=== PATIENT | female | born 1960 | race Asian ===

== ENCOUNTER 2016-11-07 06:25 | Day surgery (SDC) | payer BC ==
[~2016-11-07 06:25] MED LIST: Buffered Lidocaine 0.9% SYRIN* 5 ML/SYR SYRINGE INTRADERM ONE; Dexamethasone IV* 4 MG/ML 1 ML (4 MG) IV SLOW PU ONE; Famotidine IV* 10 MG/ML 2 ML (20 mg) IV ONE
[2016-11-07] MEDS ORDERED: Buffered Lidocaine 0.9% SYRIN* 5 ML/SYR SYRINGE ONE (06:47)
[2016-11-07] MEDS ORDERED: Famotidine IV* 10 MG/ML 2 ML (20 mg) ONE (06:47)
[2016-11-07] MEDS ORDERED: Dexamethasone IV* 4 MG/ML 1 ML (4 MG) ONE (06:47)
[2016-11-07] MEDS ORDERED: Propofol* 10 MG/ML 20 ML BTL IV PUSH ONE (07:15)
[2016-11-07] MEDS ORDERED: Lidocaine 2% PF * 5 ML VIAL ONE (07:15)
[2016-11-07] MEDS ORDERED: Succinylcholine* 20 MG/ML 10 ML VIAL ONE (07:15)
[2016-11-07] MEDS ORDERED: fentaNYL* 50 MCG/ML 2 ML VIAL (100 MCG VIAL) ONE ×2 (07:16→07:57)
[2016-11-07] MEDS ORDERED: Midazolam* 1 MG/ML 2 ML VIAL (2 MG) ONE (07:16)
[2016-11-07] MEDS ORDERED: oxyCODONE/Acetamin 5/325 MG* TAB PO PRN (07:31)
[2016-11-07] MEDS ORDERED: PROCHLORPERAZINE INJ 5 MG/ML 2 ML VIAL IV PRN (07:31)
[2016-11-07] MEDS ORDERED: fentaNYL* 50 MCG/ML 2 ML VIAL (100 MCG VIAL) IV PRN (07:31)
[2016-11-07] MEDS ORDERED: HYDROcodone/ACETAMIN 5-325 MG* 1 TAB PO PRN (07:31)
[2016-11-07] MEDS ORDERED: Ondansetron INJ* 2 MG/ML VIAL ONE (07:59)
[2016-11-07] MEDS ORDERED: HYDROcodone/ACET. 7.5/325 LIQ* 15 ML UDC ONE (08:59)
[2016-11-07] MEDS ORDERED: PROCHLORPERAZINE INJ 5 MG/ML 2 ML VIAL ONE (09:31)
--- NOTE | 2016-11-07 10:40 | OP ---
OPERATIVE REPORT: DATE OF OPERATION: 11/07/16 DATE OF : 62 SURGEON: Samuel Langley MD. PRE-OP DIAGNOSIS: Chronic tonsillitis. POST-OP DIAGNOSIS: Chronic tonsillitis. OPERATIVE PROCEDURE: Tonsillectomy. BRIEF HISTORY: This 56-year-old with symptoms of chronic recurring tonsillitis, frequent tonsilloli ths, elected for surgical therapy. DESCRIPTION OF PROCEDURE: The patient was taken to the operating room, general anesthetic was given , the patient was intubated. Tongue, mandible, and soft palate were retracted. Coblator was used t o remove the tonsils. Once hemostasis was obtained, the patient was awakened and sent to recovery r oom in stable condition. Instrument and sponge count correct. Blood loss minimal. [id number]/[facility] #: [id number]
[2016-11-07 11:28] VITALS: BP 105/72
== END 2016-11-07 11:25 | disposition home or self-care (01) ==
LOC: OR 06:25
PROVIDERS: ATTEND Otolaryngology
DX: J35.01 Chronic tonsillitis (principal); I10 Essential (primary) hypertension; E78.5 Hyperlipidemia, unspecified
CPT/HCPCS: 88304; J0330; J0780; J1100; J2250; J2405; J2704; J3010

== ENCOUNTER 2019-03-13 15:19 | Emergency (ER) | payer BC, OTHER ==
--- NOTE | 2019-03-13 15:48 | ED ---
Shortness of Breath - HPI Summary HPI Summary: The patient is a 58 y/o F presenting to [facility] accompanied by son with a chief complaint of worsening exertional SOB over the last few weeks with an episode of chest tightness today. She reports that she has been experiencing SOB that is only noticeably present with exertion, and today she had been exercising as usual and felt SOB as well as chest tightness. She denies any nausea or edema, but she did have some lightheadedness. She notes pain in left popliteal area causing decreased ROM of knee. She also has noticed elevated HR recently. Symptoms currently rated 0/10 in severity. No recent travel or surgeries. No history of blood clots in herself or in family. PMHx: HTN, HLD, tonsillectomy, Achilles tendon repair on right. FHx: stroke, congenital heart defect. Nonsmoker , rare EtOH, no substance use. Medications reviewed. Allergies noted. - History of Current Complaint Chief Complaint: EDShortnessOfBreath Time Seen by Provider: 03/13/19 15:38 Hx Obtained From: Patient Onset/Duration: Lasting Weeks, Still Present, Worse Since - today Current Severity: Mild Dyspnea At: Exertion Aggravating Factors: Other - exertion, exercise Alleviating Factors: Other - rest Associated Signs & Symptoms: Chest Pain Unrelated to Cough - tightness with exercise today, Dizzy - Allergy/Home Medications Allergies/Adverse Reactions: Allergies Allergy/AdvReac Type Severity Reaction Status Date / Time irbesartan Allergy Coughing Verified 03/13/19 15:53 lisinopril Allergy Coughing Verified 03/13/19 15:53 Home Medications: Home Medications Simvastatin (NF) [Zocor (NF)] 40 mg PO QPM 03/13/19 [History Confirmed 03/13/19] amLODIPine TAB* [Norvasc 5 mg TAB*] 10 mg PO DAILY 03/13/19 [History Confirmed 03/13/19] PMH/Surg Hx/FS Hx/Imm Hx Endocrine/Hematology History: Denies: Hx Diabetes Cardiovascular History: Reports: Hx Hypercholesterolemia, Hx Hypertension - ON MEDS PT, STATES CONTROLLED Musculoskeletal History: Reports: Hx Arthritis - POSS OSTEO IN HANDS Sensory History: Reports: Hx Contacts or Glasses - GLASSES Denies: Hx Hearing Aid Opthamlomology History: Reports: Hx Contacts or Glasses - GLASSES - Cancer History Hx Chemotherapy: No Hx Radiation Therapy: No - Surgical History Surgical History: Yes Surgery Procedure, Year, and Place: ACHILLES TENDON RUPTURE RIGHT 1999 [facility] Hx Anesthesia Reactions: No Infectious Disease History: Yes Infectious Disease History: Denies: Traveled Outside the [place] in Last 30 Days - Family History Known Family History: Positive: Cardiac Disease - congenital heart in mother, Other - stroke - Social History Alcohol Use: Rare Alcohol Amount: 1 DRINK MONTH Hx Substance Use: No Substance Use Type: Reports: None Hx Tobacco Use: No Smoking Status (MU): Never Smoked Tobacco Review of Systems Positive: Chest Pain - tightness Positive: Shortness Of Breath Negative: Nausea Positive: Other - left popliteal pain. Negative: Edema Neurological: Other - lightheaded All Other Systems Reviewed And Are Negative: Yes Physical Exam - Summary Physical Exam Summary: Constitutional: Well-developed, Well-nourished, Alert. (-) Distressed Skin: Warm, Dry HENT: Normocephalic; Atraumatic Eyes: Conjunctiva normal Neck: Musculoskeletal ROM normal neck. (-) JVD, (-) Stridor, (-) Tracheal deviation Cardio: Rhythm regular, rate normal, Heart sounds normal; Intact distal pulses; Radial pulses are 2+ and symmetric. (-) Murmur Pulmonary/Chest wall: Effort normal. (-) Respiratory distress, (-) Wheezes, (-) Rales Abd: Soft, (-) tenderness, (-) Distension, (-) Guarding, (-) Rebound Musculoskeletal: (-) Edema Lymph: (-) Cervical adenopathy Neuro: Alert, Oriented x3 Psych: Mood and affect Normal Triage Information Reviewed: Yes Vital Signs On Initial Exam: Initial Vitals Temp Pulse Resp BP Pulse Ox 99.3 F 90 16 169/98 97 03/13/19 15:30 03/13/19 15:30 03/13/19 15:30 03/13/19 15:30 03/13/19 15:30 Vital Signs Reviewed: Yes Procedures - Sedation Patient Received Moderate/Deep Sedation with Procedure: No Diagnostics - Vital Signs Vital Signs Temp Pulse Resp BP Pulse Ox 03/13/19 15:30 99.3 F 90 16 169/98 97 - Laboratory Result Diagrams: 03/13/19 16:17 03/13/19 16:17 Lab Statement: Any lab studies that have been ordered have been reviewed, and results considered in the medical decision making process. - Radiology CXR Radiology Interpretation Completed By: Radiologist Summary of Radiographic Findings: Impression: No evidence for active cardiopulmonary disease. ED physician has reviewed this report. - CT Chest/Thorax CTA CT Interpretation Completed By: Radiologist Summary of CT Findings: Impression: 1. Slightly limited exam, no evidence for pulmonary embolism. 2. Distended, common bile duct consider a right upper quadrant ultrasound for further evaluation. ED physician has reviewed this report. - EKG 1554 Cardiac Rate: NL - 86 bpm EKG Rhythm: Sinus Rhythm Summary of EKG Findings: EKG at 1554 reveals NSR at 86 bpm. Q waves in III and V1-V4. No STEMI. ED physician has reviewed and interpreted this EKG. Re-Evaluation - Re-Evaluation First Eval Re-Evaluation Time: 17:00 Comment: Patient and son concerned for family history. Will order CTA. Second Eval Re-Evaluation Time: 18:08 Comment: We discussed results of CTA. Plan for RUQ US. Course/Dx - Course Course Of Treatment: Patient is here with a couple weeks of exertional shortness of breath. Patient does not appear fluid overloaded on exam. Patient had negative chest x-ray for pulmonary edema or cardiomegaly. Patient has a well score of 0 and a negative d-dimer. Family was convince the patient had a PE and was not comfortable going home without a CTA that was performed which showed no evidence of PE. Patient does have dilated common bile duct and the elevated LFTs. Patient does not have any tenderness in her right upper quadrant. However given the lab abnormalities and dilated CBD, an ultrasound was ordered to evaluate for obstructive pathology. Patient was signed out to Dr. aCrlson pending ultrasound results. - Diagnoses Provider Diagnoses: Exertional shortness of breath, Elevated LFTs, Common bile duct dilation Discharge ED - Sign-Out/Discharge Documenting (check all that apply): Sign-Out Patient Signing out patient TO: Hayley Carlson - Patient is a sign-out to Dr. Hayley Carlson MD, at 1900 on 03/13/2019, pending RUQ US and disposition. - Discharge Plan Condition: Stable Referrals: Melody Keita MD [Primary Care Provider] - - Billing Disposition and Condition Condition: STABLE - Attestation Statements Document Initiated by Scribe: Yes Documenting Scribe: Kristina Mohan Provider For Whom Scribe is Documenting (Include Credential): Dr. Colt Romero MD Scribe Attestation: I, Kristina Mohan, scribed for Dr. Colt Romero MD on 03/13/19 at 1845. Scribe Documentation Reviewed: Yes Provider Attestation: The documentation as recorded by the Kristina moncada accurately reflects the service I personally performed and the decisions made by me, Dr. Colt Romero MD Status of Scribe Document: Viewed
[2019-03-13 16:26] LABS: ABS Eosinophils 0.2 10^3/ul (0-0.6); ABS Lymphocytes 1.9 10^3/ul (1.0-4.8); ABS Monocytes 0.8 10^3/ul (0-0.8); ABS Neutrophils 4.6 10^3/ul (1.5-7.7); Eosinophil % 2.4 %; Hematocrit 40 % (35-47); Hemoglobin 13.7 g/dL (12.0-16.0); Lymphocyte % 25.5 %; Mean Corpuscular HGB Conc 34 g/dL (31-36); Mean Corpuscular Hemoglobin 30 pg (27-31); Mean Corpuscular Volume 89 fL (80-97); Mean Platelet Volume 8.9 fL (7.4-10.4); Platelet Count 256 10^3/uL (150-450); Red Blood Count 4.54 10^6 /uL (3.70-4.87); Red Cell Distribution Width 13 % (10-15); White Blood Count 7.6 10^3/uL (3.5-10.8)
[2019-03-13 16:45] LABS: Albumin 4.2 g/dL (3.2-5.2); Albumin/Globulin Ratio 1.6 (1-3); BUN/Creatinine Ratio 35.6 (8-20); Calcium 9.7 mg/dL (8.6-10.3); EGFR African American 173.8 (>60); EGFR Non-African American 143.6 (>60); Globulin 2.7 g/dL (2-4); Potassium 3.5 mmol/L (3.5-5.0); Total Bilirubin 0.5 mg/dL (0.2-1.0); Total Protein 6.9 g/dL (6.4-8.9)
[2019-03-13 16:46] LABS: Troponin I 0.01 ng/mL (<0.03)
[2019-03-13] MEDS ORDERED: Iohexol 350* (CONTRAST) 500 ML MDV IV ONE (17:17)
--- NOTE | 2019-03-13 19:51 | ED ---
Progress - Progress Note Progress Note: Receiving sign-out from Dr. Romero at shift change 1900 pending Gallbladder US and disposition. Gallbladder US Impression: 1. Common bile duct dilatation without identified obstructing stone or mass. 2. No other acute findings. ED Provider has reviewed this report. Plan for discharge was discussed with the patient and she was agreeable with this plan. Re-Evaluation - Re-Evaluation First Eval Re-Evaluation Time: 17:00 Comment: Patient and son concerned for family history. Will order CTA. Second Eval Re-Evaluation Time: 18:08 Comment: We discussed results of CTA. Plan for RUQ US. Course/Dx - Course Course Of Treatment: Receiving sign-out from Dr. Romero at shift change 1900 pending Gallbladder US and disposition. Gallbladder US Impression: 1. Common bile duct dilatation without identified obstructing stone or mass. 2. No other acute findings. ED Provider has reviewed this report. Plan for discharge was discussed with the patient and she was agreeable with this plan. - Diagnoses Provider Diagnoses: Exertional shortness of breath, Elevated LFTs, Common bile duct dilation Discharge ED - Sign-Out/Discharge Documenting (check all that apply): Patient Departure - Discharge - Discharge Plan Condition: Stable Disposition: HOME Patient Education Materials: Shortness of Breath (ED) Referrals: Melody Keita MD [Primary Care Provider] - Additional Instructions: Call your primary care physician to schedule a stess test on Saturday. Return to ED with new or worsening symptoms. - Billing Disposition and Condition Condition: STABLE Disposition: Home - Attestation Statements Document Initiated by Kin: Yes Documenting Linibe: Irving Cervantes Provider For Whom Kin is Documenting (Include Credential): Hayley Carlson MD Scribkyler Attestation: Irving Dao, scribed for Hayley Carlson MD on 03/13/19 at 2335. Scribe Documentation Reviewed: Yes Provider Attestation: The documentation as recorded by the Irving moncada accurately reflects the service I personally performed and the decisions made by me, Hayley Carlson MD Status of Scribe Document: Viewed
[2019-03-13 19:56] VITALS: BP 152/86
== END 2019-03-13 19:55 | disposition home or self-care (01) ==
LOC: ED 15:19
DX: R06.02 Shortness of breath (principal); R79.89 Other specified abnormal findings of blood chemistry; K83.8 Other specified diseases of biliary tract; R07.89 Other chest pain; R42 Dizziness and giddiness; R10.11 Right upper quadrant pain; E78.00 Pure hypercholesterolemia, unspecified; I10 Essential (primary) hypertension; Z88.8 Allergy status to other drugs, medicaments and biological substances
CPT/HCPCS: 36415; 71046; 71275; 76705; 80053; 83880; 84484; 85025; 85379; 93005; 99283; Q9967